=== PATIENT | male | born 1930 | race Caucasian/White ===

== ENCOUNTER 2017-12-28 04:49 | Emergency (ER) | payer BC, MEDICARE ==
[2017-12-28] MEDS ORDERED: HYDROCODONE/ACETAMINOPHEN 5-325 MG TABLET PO ONE (05:52)
--- NOTE | 2017-12-28 06:09 | ER Document Report ---
ED Fall - General Chief Complaint: Fall Stated Complaint: FALL Time Seen by Provider: 12/28/17 05:04 Mode of Arrival: Medic Information source: Patient, Relative - Caregiver Notes: Patient is an 87-year-old male who presents via EMS in the company of his caregiver. Patient and caregiver report that he was getting up to go use the bathroom when he tripped and fell hitting his right arm onto a upholstered chair which caught his fall, patient and caregiver states that patient did not hit the ground. Patient reports that he only had one of his shoes on which is why he tripped over his foot. Patient denies any loss of consciousness, denies hitting his head. TRAVEL OUTSIDE OF THE [place] IN LAST 30 DAYS: No - Related data Allergies/Adverse Reactions: levofloxacin [From Levaquin] Allergy (Verified 12/28/17 05:03) morphine [Morphine] Allergy (Verified 12/28/17 05:03) Past Medical History - General Information source: Patient - Social History Smoking Status: Never Smoker Chew tobacco use (# tins/day): No Frequency of alcohol use: None Drug Abuse: None Family History: Malignancy - Lung cancerfather, Other - Dementiamother Patient has suicidal ideation: No Patient has homicidal ideation: No - Past Medical History Cardiac Medical History: Reports: Hx Atrial Fibrillation, Hx Congestive Heart Failure, Hx Coronary Artery Disease, Hx Hypercholesterolemia, Hx Hypertension Denies: Hx Heart Attack Pulmonary Medical History: Reports: Hx Pneumonia Denies: Hx Asthma Neurological Medical History: Denies: Hx Cerebrovascular Accident, Hx Seizures Endocrine Medical History: Reports: Hx Diabetes Mellitus Type 2 Renal/ Medical History: Denies: Hx Peritoneal Dialysis Malignancy Medical History: 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 Denies: Hx Hepatitis, Hx Hiatal Hernia , Hx Ulcer Psychiatric Medical History: Reports: Hx Depression Infectious Medical History: Denies: Hx Hepatitis Past Surgical History: Reports: Hx Ileostomy - In the 1960s secondary to ulcerative colitis, Hx Orthopedic Surgery - Left TKR. Denies: Hx Open Heart Surgery, Hx Pacemaker - Immunizations Hx Diphtheria, Pertussis, Tetanus Vaccination: Yes Hx Pneumococcal Vaccination: 01/23/15 Review of Systems - Review of Systems Constitutional: No symptoms reported EENT: No symptoms reported Cardiovascular: No symptoms reported Respiratory: No symptoms reported Gastrointestinal: No symptoms reported Genitourinary: No symptoms reported Male Genitourinary: No symptoms reported Musculoskeletal: No symptoms reported Skin: See HPI Hematologic/Lymphatic: No symptoms reported Neurological/Psychological: No symptoms reported Physical Exam - Vital signs Vitals: Temp Pulse Resp BP Pulse Ox 98.5 F 61 16 166/87 H 97 12/28/17 05:03 12/28/17 05:03 12/28/17 05:03 12/28/17 05:03 12/28/17 05:03 - Notes Notes: PHYSICAL EXAMINATION: GENERAL: Well-appearing, well-nourished and in no acute distress. HEAD: Atraumatic, normocephalic. EYES: Pupils equal round and reactive to light, extraocular movements intact, sclera anicteric, conjunctiva are normal. ENT: Nares patent, oropharynx clear without exudates. Moist mucous membranes. NECK: Normal range of motion, supple without lymphadenopathy LUNGS: Breath sounds clear to auscultation bilaterally and equal. No wheezes rales or rhonchi. HEART: Regular rate and rhythm without murmurs ABDOMEN: Soft, nontender, nondistended abdomen. No guarding, no rebound. No masses appreciated. Musculoskeletal: Pelvis stable with no TTP. Normal range of motion to all extremities, no pitting or edema. No cyanosis. NEUROLOGICAL: Cranial nerves grossly intact. Normal speech, normal gait. Normal sensory, motor exams PSYCH: Normal mood, normal affect. SKIN: Warm, Dry, normal turgor, no rashes. Skin tear to right forearm measuring approximately 14cm x 3cm, skin tear to left forearm measuring 1cm x 1cm. Course - Re-evaluation Re-evalutation: Patient is completely alert and oriented and has a caregiver present with him. Both patient and caregiver state that patient's only injury is the skin tear to his bilateral forearms. Patient's physical exam is unremarkable. Patient did have cervical collar in place on arrival given that the patient fall to the ground nor did patient hit his head, I cleared his C-spine as he had no pain upon palpation. Patient has no musculoskeletal complaints. Hips and pelvis stable with full range of motion. Will clean and dress skin tears and discharge patient home. - Vital Signs Vital signs: Temp Pulse Resp BP Pulse Ox 97.5 F 61 17 139/95 H 98 12/28/17 06:02 12/28/17 05:03 12/28/17 06:02 12/28/17 06:02 12/28/17 06:02 Discharge - Discharge Clinical Impression: Skin tear Fall Qualifiers: Encounter type: initial encounter Qualified Code(s): W19.XXXA - Unspecified fall, initial encounter Condition: Stable Disposition: HOME, SELF-CARE Additional Instructions: Skin Tear Your wound is a skin tear. These wounds are difficult and sometimes impossible to suture because the skin is so fragile that it may not hold the sutures. The skin condition can be due to aging and sometimes medications. The best care for such skin tears is sometimes to not try to suture them. Rather, it is best to position the skin as closely as possible to its original location and apply a bandage that can remain in place for several days at a time and sometimes these bandages are left in place until the wound has healed. Most skin tears will heal in about two weeks. Because they are so difficult to care for, skin tears should be expected to leave some scarring. Please keep the dressings in place for the next 3-4 days. Keep covered during bathing time. Please follow-up with your primary care provider in the next 3-5 days for a wound check. Referrals: CLAIRE LIN MD [Primary Care Provider] - Follow up as needed
[2017-12-28 07:16] VITALS: BP 139/95
== END 2017-12-28 06:20 | disposition home or self-care (01) ==
LOC: ER 04:49
DX: S51.812A Laceration without foreign body of left forearm, initial encounter (principal); S51.811A Laceration without foreign body of right forearm, initial encounter; W01.190A Fall on same level from slipping, tripping and stumbling with subsequent striking against furniture, initial encounter; Y93.89 Activity, other specified; I25.10 Atherosclerotic heart disease of native coronary artery without angina pectoris; I10 Essential (primary) hypertension; E11.9 Type 2 diabetes mellitus without complications; Z88.1 Allergy status to other antibiotic agents; Z88.5 Allergy status to narcotic agent
CPT/HCPCS: 99283; A9270